=== PATIENT | male | born 1955 | race Caucasian/White ===

== ENCOUNTER 2016-12-29 12:38 | Emergency (ER) | payer MEDICAID ==
[2016-12-29 12:50] VITALS: TEMP 97.9
--- NOTE | 2016-12-29 13:03 | EDPHY ---
H & P Stated Complaint: Increased sciatic pain. Time Seen by Provider: 12/29/16 13:00 HPI/ROS: CHIEF COMPLAINT: Out of Ativan HISTORY OF PRESENT ILLNESS: The patient presents to the ED complaining of leg spasms after running out of Ativan. He has been on a fairly high daily dose 2 mg twice daily. He was unable to procure a refill today. The patient denies any fever. The patient denies any additional acute complaints. The patient does have a history of chronic low back pain and chronic irritable bowel syndrome. REVIEW OF SYSTEMS: A comprehensive 10 point review of systems is otherwise negative aside from elements mentioned in the history of present illness. Source: Patient Exam Limitations: No limitations - Personal History Current Tetanus Diphtheria and Acellular Pertussis (TDAP): No - Medical/Surgical History Hx Asthma: No Hx Chronic Respiratory Disease: No Hx Diabetes: No Hx Cardiac Disease: No Hx Renal Disease: No Hx Cirrhosis: No Hx Alcoholism: No Hx HIV/AIDS: No Hx Splenectomy or Spleen Trauma: No Other PMH: anxiety, sciatica, Fx rib, Tonsillectomy, IBS. - Social History Smoking Status: Never smoked - Physical Exam Exam: General Appearance: Alert, no distress Eyes: Pupils equal and round no pallor or injection ENT, Mouth: Mucous membranes moist Respiratory: There are no retractions, lungs are clear to auscultation Cardiovascular: Regular rate and rhythm Gastrointestinal: Abdomen is soft and nontender, no masses, bowel sounds normal Neurological: A&O, normal motor function, normal sensory exam, normal cranial nerves Skin: Warm and dry, no rashes Musculoskeletal: Neck is supple nontender Extremities: symmetrical, full range of motion Constitutional: Initial Vital Signs Temperature (C) 36.6 C 12/29/16 12:48 Heart Rate 79 12/29/16 12:48 Respiratory Rate 16 12/29/16 12:48 Blood Pressure 168/108 H 12/29/16 12:48 O2 Sat (%) 99 12/29/16 12:48 O2 Delivery Mode Room Air Allergies/Adverse Reactions: amoxicillin Allergy (Severe, Verified 11/22/15 20:53) Swelling/neck,face,throat Home Medications: Medication Instructions Recorded LORazepam [Ativan 2 mg tab] 2 mg PO HS 07/13/15 Herbals/Supplements -Info Only 1 ea PO DAILY 11/23/15 LORazepam [Ativan (*)] 2 mg PO DAILY PRN 11/23/15 Medical Decision Making ED Course/Re-evaluation: The patient is well-appearing and in no acute distress. The patient has been given a single days worth of Ativan. He has been informed that we cannot refill this medication in the emergency department in the future. He will need to get his regular medications filled through his primary care provider. The patient has no evidence of fever or abnormal neurologic findings on his exam. Departure - Departure Disposition: Home, Routine, Self-Care Clinical Impression: Chronic low back pain Condition: Good Instructions: Acute Low Back Pain (ED) Additional Instructions: 1. You have been given a 1 day refill of your Ativan. 2. We will be unable to refill this medication from the emergency department in the future. You will need to get it through your primary care provider.
[2016-12-29] MEDS ORDERED: LORAZEPAM 1 MG PREPACK#4 BTL TAKEHOME ONE (13:37)
[2016-12-29] MEDS ORDERED: LORazepam 1 MG TAB PO ONE (13:37)
[2016-12-29 14:45] VITALS: BP 156/96; PULSE 82; RESP 18; O2SAT 95
== END 2016-12-29 14:44 | disposition home or self-care (01) ==
LOC: EDUNIT#
DX: M54.5 Low back pain (principal); G89.29 Other chronic pain

== ENCOUNTER 2017-02-17 16:05 | Emergency (ER) | payer MEDICAID ==
--- NOTE | 2017-02-17 16:52 | EDPHY ---
H & P Stated Complaint: Needs RX for lorazapam HPI/ROS: CHIEF COMPLAINT: Lorazepam withdrawal, chronic pain. HISTORY OF PRESENT ILLNESS: This patient is a 61 year old male with history of sciatica and chronic pain requesting a refill of his Ativan prescription, which he ran out of this morning , taking his last dose at 10:30. His medication is generally prescribed by Dr. Taina Garcia, and he has been taking daily Ativan since 2009 for pain that he describes as resulting from a past steroid injection and prior shingles infection. He generally takes 2mg BID for relief of symptoms. He has tried herbal supplements for relaxation and pain relief. He has not taken any ibuprofen or acetaminophen, and states he has tried these medications in the past with no relief and would rather avoid them due to family history of cardiac disease. He states he has significant anxiety related to his pain and subsequent limitations. He states it has been difficult for him to go see a pain specialist due to logistics of arranging appointments and transportation. He feels his prescription is no longer sufficient to control his symptoms, and would prefer to take 2mg Ativan three times daily when needed. He states Dr. Garcia is uncomfortable with this, and recommended he follow up with a pain specialist and a psychiatrist for further management. He called Dr. Garcia's office today to discuss his medication shortage. There has been no recent change in his pain. He describes it as right low back and buttock. He does not have new numbness or weakness. He has had some ongoing difficulty with his bowels, but no recent change. Specifically, he denies recent bowel incontinence or constipation and urinary incontinence or retention. REVIEW OF SYSTEMS: A 10 point review of systems was performed and is negative with the exception of the elements mentioned in the history of present illness. - Personal History Current Tetanus/Diphtheria Vaccine: Yes Current Tetanus Diphtheria and Acellular Pertussis (TDAP): Yes - Medical/Surgical History PMH: 1. Sciatica 2. Chronic pain 3. Anxiety 4. IBS 5. Rib fracture 6. Tonsillectomy Hx Asthma: No Hx Chronic Respiratory Disease: No Hx Diabetes: No Hx Cardiac Disease: No Hx Renal Disease: No Hx Cirrhosis: No Hx Alcoholism: No Hx HIV/AIDS: No Hx Splenectomy or Spleen Trauma: No - Social History Smoking Status: Never smoked Additional Social History: Single. Lives alone in [place]. No alcohol use. No tobacco use. PCP Dr. Taina Garcia. - Physical Exam Exam: General Appearance: Alert, no acute distress. Blood pressure 116/87 at triage. Eyes: Pupils equal and round, no conjunctival injection, no discharge. Neck: Nontender to palpation over the cervical spine. Respiratory: Lungs are clear to auscultation; no wheezes, rales, or rhonchi. Cardiovascular: Regular rate and rhythm; no murmur, rub, or gallop. Gastrointestinal: Abdomen is soft and non tender, no masses or organomegaly, bowel sounds normal. Skin: Warm and dry, no rashes, normal color. Back: Nontender to palpation over the thoracolumbar spine. Extremities: No lower extremity edema. Neurological: Alert and oriented. Moving all four extremities easily and equally. Psychiatric: Slightly anxious affect. No agitation. Constitutional: Initial Vital Signs Heart Rate 92 02/17/17 16:10 Respiratory Rate 16 02/17/17 16:10 Blood Pressure 116/87 H 02/17/17 16:10 O2 Sat (%) 98 02/17/17 16:10 O2 Delivery Mode Room Air Allergies/Adverse Reactions: amoxicillin Allergy (Severe, Verified 11/22/15 20:53) Swelling/neck,face,throat Home Medications: Medication Instructions Recorded LORazepam [Ativan 2 mg tab] 2 mg PO HS 07/13/15 Herbals/Supplements -Info Only 1 ea PO DAILY 11/23/15 LORazepam [Ativan (*)] 2 mg PO DAILY PRN 11/23/15 LORazepam [Ativan 2 mg tab] 2 mg PO BID #13 tablet 02/17/17 Medical Decision Making ED Course/Re-evaluation: 17:09 Spoke with Urszula Collins NP, informatics physician liaison for Dr. Garcia. She is aware of the patient's situation, and states he is scheduled for a follow up appointment on , six days from now. She states she and the patient are aware that he has broken his medication contract with them, but agrees with providing him with a prescription for 2mg Ativan BID to last until his appointment on 02/23/17. Dr. Garcia's office will assist him in following up with a pain clinic and/or psychiatrist at that time for further management of his medication regimen. The patient has been honest regarding his dosing and his interactions with his primary care provider. I do not find any entries for him on [place] PDMP. He understands that he will not receive another prescription for controlled substances from the emergency department. Differential Diagnosis: I have not found evidence of a new medical condition. He has a history of chronic pain and anxiety. His neurologic exam does not suggest an urgent neurologic change. He is here seeking medication refill and has been honest about his benzodiazepine use. He is not interested in stopping benzodiazepines unless he has an alternative to control his pain and his anxiety. Departure - Departure Disposition: Home, Routine, Self-Care Clinical Impression: Sciatica, right side, Anxiety Chronic pain Qualifiers: Chronic pain type: chronic pain syndrome Qualified Code(s): G89.4 - Chronic pain syndrome Condition: Good Instructions: Sciatica (ED), Anxiety (ED) Additional Instructions: 1. Follow up with your primary care provider's office as scheduled on 02/23/17. 2. We have referred you to [facility] for further management of your symptoms. You may also discuss further resources for follow up with your primary care physician. 3. We have refilled your Ativan prescription to last until your appointment on . You may only take this medication twice a day as we discussed. We will not be able to refill this prescription at the Emergency Department, as we discussed. 4. Seek care urgently for any concerning worsening of condition. Referrals: [facility] [Provider Group] - As per Instructions Stand Alone Forms: Narcotic Guidelines Prescriptions: LORazepam [Ativan 2 mg tab] 2 mg PO BID #13 tablet Report Scribed for: Jodie Leo Report Scribed by: Suzanne Garcia Date of Report: 02/17/17 Time of Report: 16:53 Physician Review and Approval Statement: 02/19/17 17:37 Portions of this note were transcribed by the medical anthropology director. I, Dr. Jodie Leo, personally performed the history, physical exam, and medical decision- making; and confirmed the accuracy of the information in the transcribed note.
[2017-02-17] MEDS ORDERED: IBUPROFEN 600 MG TAB PO ONE (18:07)
[2017-02-17 18:15] VITALS: BP 141/93; PULSE 77; RESP 18; TEMP 98.4; O2SAT 99
== END 2017-02-17 18:19 | disposition home or self-care (01) ==
DX: M54.32 Sciatica, left side (principal); G89.29 Other chronic pain; F41.9 Anxiety disorder, unspecified

== ENCOUNTER 2019-01-10 23:32 | Emergency (ER) | payer OTHER, MEDICAID | END 2019-01-11 01:55 | disposition home or self-care (01) ==